=== PATIENT | male | born 1970 | race Caucasian/White ===

== ENCOUNTER 2018-03-04 11:19 | Emergency (ER) | payer BC ==
[2018-03-04 11:43] VITALS: BP 120/76
--- NOTE | 2018-03-05 07:18 | UC ---
- Progress Note Progress Note: LWBS. NO IMAGING Discharge - Sign-Out/Discharge Documenting (check all that apply): Post-Discharge Follow Up All imaging exams completed and their final reports reviewed: No Studies - Discharge Plan Condition: Stable Disposition: LEFT WITHOUT BEING SEEN Referrals: Aman Shannon MD [Primary Care Provider] - - Billing Disposition and Condition Condition: STABLE Disposition: Left Without Being Seen
== END 2018-03-04 12:04 | disposition left against medical advice (07) ==
LOC: UCEAST 11:19
DX: Z53.21 Procedure and treatment not carried out due to patient leaving prior to being seen by health care provider (principal)